=== PATIENT | female | born 1945 | race Caucasian/White ===

== ENCOUNTER 2016-07-20 12:47 | Outpatient (CLI) | payer MEDICARE, OTHER | END 2016-07-20 12:48 | disposition home or self-care (01) | DX: R51 Headache (principal) ==

== ENCOUNTER 2019-06-19 11:42 | Outpatient (CLI) | payer MEDICARE, OTHER ==
--- NOTE | 2019-06-20 09:25 | XRAY Report ---
Reason: RT FOOT PAIN Procedure Date: 06/19/2019 Accession Number: [id number] / [id number] Procedure: XRS - Foot 3 View RT CPT Code: Final Report FULL RESULT: EXAM: RIGHT FOOT RADIOGRAPHY EXAM DATE: 06/19/2019 11:52 AM HISTORY: RT FOOT PAIN COMPARISON: None. TECHNIQUE: AP, lateral and oblique, 3 views . FINDINGS: There is mild bunion formation with mild degenerative arthritis at the first MTP joint. Mild degenerative arthritis seen at the second PIP joint. There is also some mild degenerative spurring laterally at the second MTP joint. No metatarsal shaft abnormality seen. Midfoot articulations are unremarkable. Possible tiny plantar calcaneal spur. Unremarkable soft tissues. IMPRESSION: Mild bunion formation and multifocal mild degenerative spurring. Otherwise essentially unremarkable. RADIA
== END 2019-06-19 11:43 | disposition home or self-care (01) ==
LOC: DI.S 11:42
PROVIDERS: ATTEND Registered Nurse
DX: M19.071 Primary osteoarthritis, right ankle and foot (principal); M21.611 Bunion of right foot

== ENCOUNTER 2020-02-02 12:43 | Outpatient (CLI) | payer MEDICARE, OTHER ==
--- NOTE | 2020-02-02 17:20 | XRAY Report ---
PROCEDURE: Hip w/Pelvis 2-3V LT INDICATIONS: PAIN IN LT HIP TECHNIQUE: AP pelvis with lateral view(s) of the left hip(s). COMPARISON: None. FINDINGS: Bones: No fractures or dislocations. Total right hip arthroplasty changes are present. There is mod erate joint space loss superiorly in the left hip with mild subcortical sclerosis and cystic changes in the femoral head. Mild spurring of the acetabulum. Pelvic ring appears intact. No suspicious bony lesions. Soft tissues: The visualized bowel gas pattern is normal. No suspicious soft tissue calcifications. IMPRESSION: 1. Mild left hip degeneration. 2. Appropriate appearance of right hip arthroplasty. Reviewed by: Kylee Coon MD on 02/02/2020 4:19 PM JESSICA Approved by: Kylee Coon MD on 02/02/2020 4:19 PM JESSICA Station ID: [id number]
== END 2020-02-02 12:44 | disposition home or self-care (01) ==
LOC: DI.S 12:43
PROVIDERS: ATTEND Physician Assistant
DX: M16.12 Unilateral primary osteoarthritis, left hip (principal); Z96.641 Presence of right artificial hip joint

== ENCOUNTER 2021-04-20 10:52 | Outpatient (CLI) | payer MEDICARE, OTHER ==
--- NOTE | 2021-04-20 11:43 | DEXA Report ---
PROCEDURE: Dexa Spine and/or Hip INDICATIONS: OSTEOPOROSIS TECHNIQUE: Dual energy x-ray absorptiometry (DXA) was performed on a [employer] System. Regions measur ed are the AP Spine, femoral neck, and if needed forearm. COMPARISON: None. FINDINGS: Forearm bone mineral density was measured due to bilateral hip replacement. Lumbar Spine: Bone Mineral Density 0.855 g/cm/cm,T score -2.7. Left forearm: Bone Mineral Density 0.675 g/cm/cm, T score -2.3. (T score greater or equal to -1.0: NORMAL) (T score from -1.1 to -2.4: OSTEOPENIA) (T score less than or equal to -2.5 to: OSTEOPOROSIS) Impression: Osteoporosis. Patients with diagnosis of osteoporosis or osteopenia should have regular bone mineral density assess ment. For those eligible for Medicare, routine testing is allowed once every 2 years. Testing frequ ency can be increased for patients who have rapidly progressing disease or for those who are receivin g medical therapy to restore bone mass. Reviewed by: Nilesh Robles MD on 04/20/2021 11:42 AM PDT Approved by: Nilesh Robles MD on 04/20/2021 11:42 AM PDT Station ID: [id number]
== END 2021-04-20 10:53 | disposition home or self-care (01) ==
LOC: DI 10:52
PROVIDERS: ATTEND Registered Nurse
DX: M81.0 Age-related osteoporosis without current pathological fracture (principal); Z96.643 Presence of artificial hip joint, bilateral

== ENCOUNTER 2021-06-20 13:25 | Outpatient (CLI) | payer MEDICARE, OTHER ==
--- NOTE | 2021-06-22 10:28 | Mammography Report ---
BILATERAL DIGITAL SCREENING MAMMOGRAM 3D/2D WITH EXAGGERATED CC: 06/20/2021 CLINICAL: Routine screening. Comparison is made to exams dated: 09/01/2014 mammogram, 04/01/2013 mammogram - [facility], and 08/26/2009 mammogram - [facility]. The tissue of both breasts is predominant ly fatty. No significant masses, calcifications, or other findings are seen in either breast. There has been no significant interval change. IMPRESSION: NEGATIVE There is no mammographic evidence of malignancy. A 1 year screening mammogram is recommended. This exam was interpreted at Station ID: [id number]. NOTE: For mammograms, a report in lay terms will be sent to the patient. Approximately 15% of breast malignancies will not be visualized mammographically. In the management of a palpable breast mass, a negative mammogram must not discourage biopsy of a clinically suspicious lesion. Electronically Signed By: Dominick Bingham M.D., jr/nalini:06/21/2021 16:29:34 ACR BI-RADS Category 1: Negative 3341F PARENCHYMAL PATTERN: (F) - The breast(s) demonstrate(s) diffuse fatty replacement. BI-RADS CATEGORY: (1) - 1 RECOMMENDATION: (ANNUAL) - Recommend routine annual screening mammography. [id number] 1 year screening LATERALITY: (B)
== END 2021-06-20 13:26 | disposition home or self-care (01) ==
LOC: DI.S 13:25
DX: Z12.31 Encounter for screening mammogram for malignant neoplasm of breast (principal)

== ENCOUNTER 2023-06-20 07:26 | Outpatient (CLI) | payer MEDICARE, OTHER ==
[2023-06-20 14:44] LABS: BASOPHILS % (AUTO) 0.4 %; EOSINOPHILS # (AUTO) 0.1 10^3/uL (0.0-0.7); EOSINOPHILS % (AUTO) 1.3 %; HCT - HEMATOCRIT 41.4 % (37.0-47.0); HGB - HEMOGLOBIN 13.2 g/dL (12.0-16.0); LYMPHOCYTES # (AUTO) 2.2 10^3/uL (1.5-3.5); LYMPHOCYTES % (AUTO) 40.6 %; MEAN CORPUSCULAR HGB CONC 31.9 g/dL (32.0-36.0); MEAN CORPUSCULAR VOLUME 87.7 fL (81.0-99.0); MEAN PLATELET VOLUME 10.2 fL (7.9-10.8); MONOCYTES # (AUTO) 0.6 10^3/uL (0.0-1.0); MONOCYTES % (AUTO) 10.6 %; NEUTROPHILS # (AUTO) 2.6 10^3/uL (1.5-6.6); NEUTROPHILS % (AUTO) 46.9 %; PLT - PLATELET COUNT 247 10^3/uL (130-450); RED BLOOD COUNT 4.72 10^6/uL (4.20-5.40); RED CELL DISTRIBUTION WIDTH 14.5 % (12.0-15.0); WHITE BLOOD COUNT 5.5 x10^3/uL (4.8-10.8)
[2023-06-20 15:30] LABS: % IRON SATURATION 29 % (20-50); ALBUMIN 4.2 g/dL (3.2-5.5); ALBUMIN/GLOBULIN RATIO 1.9 (1.0-2.2); ALKALINE PHOSPHATASE 54 IU/L (42-121); ALT ALANINE AMINOTRANSFERASE 14 IU/L (10-60); AST ASPARTATE AMINOTRANSFERASE 19 IU/L (10-42); BILIRUBIN,TOTAL 0.6 mg/dL (0.2-1.0); BUN - BLOOD UREA NITROGEN 22 mg/dL (6-20); CALCIUM 9.2 mg/dL (8.5-10.3); CARBON DIOXIDE - CO2 26 mmol/L (21-32); CHLORIDE 108 mmol/L (101-111); CHOL/HDL RATIO 3.1 (<4.4); CHOLESTEROL 206 mg/dL; CREATININE 0.6 mg/dL (0.6-1.3); GFR - MDRD 97 (>89); GLUCOSE 87 mg/dL (74-104); HDL CHOLESTEROL 66 mg/dL; IRON 93 ug/dL (50-212); LDL CHOLESTEROL,CALCULATED 124 mg/dL; LDL/HDL RATIO 1.9 (<4.4); POTASSIUM 4.3 mmol/L (3.5-4.5); SODIUM 139 mmol/L (135-145); TOTAL IRON BINDING CAPACITY 323 ug/dL (250-450); TOTAL PROTEIN 6.4 g/dL (6.4-8.9); TRANSFERRIN 231 mg/dL (203-362); TRIGLYCERIDES 81 mg/dL (48-352); VLDL CHOLESTEROL 16 mg/dL
[2023-06-20 15:38] LABS: FERRITIN 37.8 ng/mL (11.0-306.8)
--- NOTE | 2023-06-20 21:29 | XRAY Report ---
PROCEDURE: Cervical Spine 2 View INDICATIONS: XRAY TECHNIQUE: 3 views of the cervical spine were obtained. COMPARISON: None FINDINGS: Bones: Vertebral body height and alignment is maintained. No evidence of traumatic malalignment. Disc space narrowing and hypertrophic uncovertebral joints in the mid cervical spine results in straighte basilia of normal cervical lordosis Soft tissues: No prevertebral soft tissue swelling. 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
== END 2023-06-20 07:27 | disposition home or self-care (01) ==
LOC: DI.S 07:26
PROVIDERS: ATTEND Internal Medicine
DX: R51.9 Headache, unspecified (principal); G25.81 Restless legs syndrome; E78.5 Hyperlipidemia, unspecified; M81.0 Age-related osteoporosis without current pathological fracture; D64.9 Anemia, unspecified; M47.812 Spondylosis without myelopathy or radiculopathy, cervical region; M50.00 Cervical disc disorder with myelopathy, unspecified cervical region; M50.10 Cervical disc disorder with radiculopathy, unspecified cervical region
CPT/HCPCS: 36415; 80053; 80061; 82306; 82728; 83540; 83721; 84466; 85025

== ENCOUNTER 2023-09-24 14:16 | Outpatient (CLI) | payer MEDICARE, OTHER ==
--- NOTE | 2023-09-24 19:31 | MRI Report ---
PROCEDURE: MRI lumbar spine without contrast INDICATIONS: NECK PAIN TECHNIQUE: Multiplanar multisequential MRI of the cervical spine was obtained without contrast. COMPARISON: None. FINDINGS: Alignment and Curvature: Grade 1 anterior listhesis at C4-5 and retrolisthesis of C5-6 Bone Marrow: Marrow demonstrates normal overall signal. Spinal Cord: Visualized spinal cord has normal size and signal. No cerebellar tonsillar herniation. Paraspinal Soft Tissues: No paravertebral masses. Prevertebral soft tissues are normal in thickness . C2-C3: Normal in appearance. C3-C4: Disc height is maintained. Small posterior disc osteophyte complex with mild central stenosis . Hypertrophic uncovertebral joints. Moderate left and right foraminal stenosis C4-C5: Disc height is maintained. Small posterior disc osteophyte complex with mild central stenosis of. Atrophic arthropathy associated with moderate right and mild left foraminal stenosis C5-C6: Disc space narrowing and posterior disc osteophyte complex results in moderate central stenos is. Hypertrophic arthropathy associated with severe left and severe right foraminal stenosis C6-C7: The space narrowing and posterior disc osteophyte complex associated with moderate central st enosis. Severe left and severe right foraminal stenosis present. C7-T1: Disc spaces maintained. No central or foraminal stenosis IMPRESSION: Multilevel degenerative disc disease and arthropathy results in varying degrees of central and forami nal stenosis including moderate central and severe foraminal stenosis at C5-6 Reviewed by: Nelson Hess MD on 09/24/2023 6:30 PM JESSICA Approved by: Nelson Hess MD on 09/24/2023 6:30 PM AKDT Station ID: [id number]
== END 2023-09-24 14:17 | disposition home or self-care (01) ==
LOC: DI 14:16
PROVIDERS: ATTEND Internal Medicine
DX: M47.812 Spondylosis without myelopathy or radiculopathy, cervical region (principal); M50.31 Other cervical disc degeneration, high cervical region; M48.02 Spinal stenosis, cervical region

== ENCOUNTER 2024-03-23 08:05 | Outpatient (CLI) | payer MEDICARE, OTHER ==
[2024-03-23 15:15] LABS: BASOPHILS % (AUTO) 0.8 %; EOSINOPHILS # (AUTO) 0.1 10^3/uL (0.0-0.7); EOSINOPHILS % (AUTO) 1.2 %; HGB - HEMOGLOBIN 12.7 g/dL (12.0-16.0); LYMPHOCYTES % (AUTO) 39.5 %; MEAN CORPUSCULAR HEMOGLOBIN 28.3 pg (27.0-31.0); MEAN CORPUSCULAR HGB CONC 31.8 g/dL (32.0-36.0); MEAN CORPUSCULAR VOLUME 89.3 fL (81.0-99.0); MEAN PLATELET VOLUME 10.2 fL (7.9-10.8); MONOCYTES # (AUTO) 0.5 10^3/uL (0.0-1.0); MONOCYTES % (AUTO) 10.7 %; NEUTROPHILS # (AUTO) 2.4 10^3/uL (1.5-6.6); NEUTROPHILS % (AUTO) 47.6 %; PLT - PLATELET COUNT 242 10^3/uL (130-450); RED BLOOD COUNT 4.48 10^6/uL (4.20-5.40); WHITE BLOOD COUNT 4.9 x10^3/uL (4.8-10.8)
[2024-03-23 15:46] LABS: THYROID STIMULATING HORMONE 2.09 uIU/mL (0.34-5.60)
[2024-03-23 15:49] LABS: ALBUMIN 4.2 g/dL (3.2-5.5); ALBUMIN/GLOBULIN RATIO 1.8 (1.0-2.2); BILIRUBIN,TOTAL 0.8 mg/dL (0.2-1.0); CALCIUM 9.5 mg/dL (8.5-10.3); CREATININE 0.6 mg/dL (0.6-1.3); POTASSIUM 4.3 mmol/L (3.5-4.5); TOTAL PROTEIN 6.6 g/dL (6.4-8.9)
== END 2024-03-23 08:06 | disposition home or self-care (01) ==
LOC: LAB.S 08:05
PROVIDERS: ATTEND Internal Medicine Cardiovascular Disease
DX: I67.82 Cerebral ischemia (principal); E78.5 Hyperlipidemia, unspecified
CPT/HCPCS: 36415; 80053; 84443; 85025